=== PATIENT | female | born 1995 | race African-American/Black ===

== ENCOUNTER 2017-09-26 00:32 | Inpatient (IN) | payer MEDICAID ==
[2017-09-26] MEDS: LACTATED RINGER'S 500 ML IV ×4 (01:43→13:43)
[2017-09-26] MEDS ORDERED: IBUPROFEN 600 MG TAB PO (02:00)
[2017-09-26] MEDS ORDERED: LIDOCAINE 1% (MPF) 30 ML INJ INJ (02:00)
[2017-09-26] MEDS ORDERED: MISOPROSTOL 200 MCG TAB PR ×2 (02:00→21:30)
[2017-09-26] MEDS ORDERED: BUTORPHANOL 2 MG INJ IV (02:00)
[2017-09-26] MEDS ORDERED: HYDROCODONE/APAP (5/325) TAB PO ×3 (02:00→21:30)
[2017-09-26] MEDS ORDERED: CARBOPROST 250 MCG INJ IM ×2 (02:00→21:30)
[2017-09-26] MEDS ORDERED: OXYTOCIN 30 UNITS/LR 500 ML IV ×2 (02:00→21:30)
[2017-09-26] MEDS ORDERED: METHYLERGONOVINE 0.2 MG INJ IM ×2 (02:00→21:30)
[2017-09-26 03:07] LABS: ADD MAN DIFF? NO
[2017-09-26] MEDS: BUTORPHANOL 2 MG INJ IV (03:13)
[2017-09-26] MEDS: AMPICILLIN 2 GM/NS (PMX) 100 ML IV (03:14)
[2017-09-26] MEDS: LACTATED RINGER'S 1,000 ML IV ×3 (03:14→11:36)
[2017-09-26 03:17] LABS: BASOPHILS % 0.3 % (0.0-2.0); EOSINOPHILS % 0.5 % (0.0-7.0); HEMATOCRIT 36.9 % (37.0-47.0); HEMOGLOBIN 13.1 g/dl (12.0-16.0); LYMPHOCYTES # 1.9 10^3/ul (0.8-2.9); LYMPHOCYTES % 24.6 % (18.0-55.0); MEAN CORPUSCULAR HGB CONC 35.5 g/dl (32.0-37.0); MEAN CORPUSCULAR VOLUME 90.2 fl (72.0-104.0); MEAN PLATELET VOLUME 10.8 fl (7.4-10.4); MONOCYTE # 0.9 10^3/ul (0.3-0.9); NEUTROPHIL # 4.9 10^3/ul (1.6-7.5); NEUTROPHILS % 63.1 % (30.0-74.0); PLATELET COUNT 167 10^3/UL (140-415); RED BLOOD COUNT 4.09 10^6/ul (4.20-5.40); RED CELL DISTRIBUTION WIDTH 13.5 % (11.5-14.5)
[2017-09-26 03:17] LABS: WHITE BLOOD COUNT 7.7 10^3/ul (4.8-10.8)
[2017-09-26 03:32] LABS: INR 0.89; PROTIME 12.1 Sec (11.9-14.9); PT RATIO 0.9
[2017-09-26 03:33] LABS: PARTIAL THROMBOPLASTIN TIME 28.6 Sec (25.0-35.0)
[2017-09-26 03:35] LABS: ALANINE AMINOTRANSFERASE 20 IU/L (13-69); ALBUMIN 3.5 g/dl (3.3-4.9); ALBUMIN/GLOBULIN RATIO 1.02; ALKALINE PHOSPHATASE 193 IU/L (42-121); ANION GAP 16 (8-16); ASPARTATE AMINO TRANSFERASE 27 IU/L (15-46); BILIRUBIN,INDIRECT 0.3 mg/dl (0-1.1); BILIRUBIN,TOTAL 0.3 mg/dl (0.2-1.3); BLOOD UREA NITROGEN 4 mg/dl (7-20); CALCIUM 9.2 mg/dl (8.4-10.2); CARBON DIOXIDE 21 mmol/L (21-31); CHLORIDE 109 mmol/L (97-110); CREATININE 0.53 mg/dl (0.44-1.00); GLUCOSE 80 mg/dl (70-220); POTASSIUM 3.7 mmol/L (3.5-5.1); SODIUM 142 mmol/L (135-144); TOTAL PROTEIN 6.9 g/dl (6.1-8.1)
[2017-09-26 04:21] LABS: HEPATITIS B SURFACE ANTIGEN NEGATIVE (NEGATIVE)
[2017-09-26] MEDS: AMPICILLIN 1 GM/NS (PMX) 50 ML IV ×2 (07:08→10:00)
[2017-09-26 07:30] LABS: AMPHETAMINE/METHAMPHETAMINE Negative (NEGATIVE); BARBITURATES Negative (NEGATIVE); BENZODIAZEPINES Negative (NEGATIVE); CANNABINOIDS Negative (NEGATIVE); COCAINE Negative (NEGATIVE); OPIATES Negative (NEGATIVE)
[2017-09-26 07:35] LABS: ADD UMIC NO; UR ASCORBIC ACID NEGATIVE (NEGATIVE); UR BACTERIA FEW /HPF (NONE SEEN); UR BILIRUBIN (Dip) NEGATIVE (NEGATIVE); UR BLOOD (Dip) NEGATIVE (NEGATIVE); UR CLARITY SLIGHTLY CLOUDY (CLEAR); UR COLOR YELLOW (YELLOW); UR GLUCOSE (Dip) NEGATIVE (NEGATIVE); UR KETONES (Dip) NEGATIVE (NEGATIVE); UR LEUKOCYTE ESTERASE (Dip) NEGATIVE Leu/ul (NEGATIVE); UR NITRITE (Dip) NEGATIVE (NEGATIVE); UR RBC 0 /HPF (0-5); UR SPECIFIC GRAVITY (Dip) 1.005 (1.003-1.030); UR SQUAMOUS EPITHELIAL CELL FEW /HPF (FEW); UR TOTAL PROTEIN (Dip) NEGATIVE (NEGATIVE); UR UROBILINOGEN (Dip) NEGATIVE (NEGATIVE); UR WBC 1 /HPF (0-5)
[2017-09-26 09:11] LABS: HIV 1&2 ANTIBODY NEGATIVE (NEGATIVE)
[2017-09-26] MEDS ORDERED: FENTAnyl 2MCG/ML-ROPIV 0.2% 100 ML (10:25)
[2017-09-26] MEDS: FENTAnyl 2MCG/ML-ROPIV 0.2% 100 ML BAG EPI (10:56)
[2017-09-26] MEDS ORDERED: NALOXONE (0.4 MG/ML) INJ IV (11:00)
[2017-09-26] MEDS: MINERAL OIL LIGHT 10 ML VIAL TOP (16:30)
[2017-09-26] MEDS: OXYTOCIN 30 UNITS/LR 500 ML IV ×3 (17:00→20:55)
[2017-09-26] MEDS ORDERED: DIBUCAINE 1% 30 GM OINT PR (21:30)
[2017-09-26] MEDS ORDERED: ZOLPIDEM 5 MG TAB PO (21:30)
[2017-09-26] MEDS: IBUPROFEN 600 MG TAB PO (21:32)
[2017-09-26 21:39] LABS: RAPID PLASMA REAGIN NONREACTIVE (NR)
[2017-09-26] MEDS: BENZOCAINE 20% 56 ML SPRAY TOP (22:35)
[2017-09-26] MEDS: LANOLIN 7 GM TUBE TOP (22:35)
[2017-09-26] MEDS: WITCH HAZEL/GLYCERIN PAD PR (22:35)
[2017-09-27] MEDS: CEPHALEXIN 500 MG CAP PO ×5 (00:26→23:39)
[2017-09-27] MEDS: LACTATED RINGER'S 1,000 ML IV* (00:53)
[2017-09-27] MEDS: IBUPROFEN 600 MG TAB PO ×5 (02:00→23:39)
[2017-09-27] MEDS: MAGNESIUM HYDROXIDE 30ML CUP PO ×2 (09:47→21:23)
[2017-09-27] MEDS: SENNA/DOCUSATE NA (8.6MG/50MG) TAB PO ×2 (09:47→21:23)
[2017-09-27 10:27] LABS: ADD MAN DIFF? NO
[2017-09-27 10:35] LABS: BASOPHILS % 0.2 % (0.0-2.0); EOSINOPHILS # 0.1 10^3/ul (0.0-0.5); EOSINOPHILS % 0.5 % (0.0-7.0); HEMATOCRIT 29.2 % (37.0-47.0); HEMOGLOBIN 10.1 g/dl (12.0-16.0); LYMPHOCYTES # 1.9 10^3/ul (0.8-2.9); LYMPHOCYTES % 14.7 % (18.0-55.0); MEAN CORPUSCULAR HEMOGLOBIN 32.1 pg (29.0-33.0); MEAN CORPUSCULAR HGB CONC 34.6 g/dl (32.0-37.0); MEAN CORPUSCULAR VOLUME 92.7 fl (72.0-104.0); MEAN PLATELET VOLUME 10.7 fl (7.4-10.4); MONOCYTE # 0.6 10^3/ul (0.3-0.9); MONOCYTES % 4.7 % (0.0-13.0); NEUTROPHIL # 10.4 10^3/ul (1.6-7.5); NEUTROPHILS % 79.4 % (30.0-74.0); PLATELET COUNT 154 10^3/UL (140-415); RED BLOOD COUNT 3.15 10^6/ul (4.20-5.40); RED CELL DISTRIBUTION WIDTH 13.9 % (11.5-14.5)
[2017-09-28] MEDS: CEPHALEXIN 500 MG CAP PO ×2 (05:41→12:14)
[2017-09-28] MEDS: IBUPROFEN 600 MG TAB PO ×2 (05:41→12:14)
[2017-09-28] MEDS: DIPHTH/TET/ACEL PERTUSS (ADULT) 0.5 ML VIAL IM* (09:00)
[2017-09-28] MEDS: VARICELLA VACCINE LIVE/PF 1,350 UNIT/0.5 ML ML SC* (09:00)
[2017-09-28] MEDS: MEASLES,MUMPS,RUBELLA VACCINE INJ SC* (09:00)
[2017-09-28 09:41] LABS: ADD MAN DIFF? NO
[2017-09-28 09:46] LABS: BASOPHILS % 0.4 % (0.0-2.0); EOSINOPHILS # 0.1 10^3/ul (0.0-0.5); EOSINOPHILS % 1.7 % (0.0-7.0); HEMATOCRIT 27.7 % (37.0-47.0); HEMOGLOBIN 9.4 g/dl (12.0-16.0); LYMPHOCYTES # 1.7 10^3/ul (0.8-2.9); LYMPHOCYTES % 21.5 % (18.0-55.0); MEAN CORPUSCULAR HEMOGLOBIN 31.5 pg (29.0-33.0); MEAN CORPUSCULAR HGB CONC 33.9 g/dl (32.0-37.0); MEAN PLATELET VOLUME 10.3 fl (7.4-10.4); MONOCYTE # 0.5 10^3/ul (0.3-0.9); MONOCYTES % 6.7 % (0.0-13.0); NEUTROPHIL # 5.4 10^3/ul (1.6-7.5); NEUTROPHILS % 69.2 % (30.0-74.0); PLATELET COUNT 154 10^3/UL (140-415); RED BLOOD COUNT 2.98 10^6/ul (4.20-5.40); RED CELL DISTRIBUTION WIDTH 13.9 % (11.5-14.5)
[2017-09-28 09:46] LABS: WHITE BLOOD COUNT 7.8 10^3/ul (4.8-10.8)
[2017-09-28] MEDS: SENNA/DOCUSATE NA (8.6MG/50MG) TAB PO (10:05)
[2017-09-28] MEDS: MAGNESIUM HYDROXIDE 30ML CUP PO (10:05)
[2017-09-28 15:47] LABS: RUBELLA ANTIBODY - IGG <0.90 index
[2017-10-01 12:21] LABS: RUBELLA ANTIBODY - IGM <20.00 AU/mL
== END 2017-09-28 17:08 | disposition home or self-care (01) | DRG 775 ==
LOC: OBT 00:32 → L-D 00:32 → OBT 01:40 → L-D 01:40 → PP1 20:50
PROC: 10E0XZZ Delivery of Products of Conception, External Approach (ICD-10-PCS; principal; 2017-09-26)
PROC: 0W8NXZZ Division of Female Perineum, External Approach (ICD-10-PCS; 2017-09-26)
PROC: 3E033VJ Introduction of Other Hormone into Peripheral Vein, Percutaneous Approach (ICD-10-PCS; 2017-09-26)
DX: O70.9 Perineal laceration during delivery, unspecified (principal); Z37.0 Single live birth; Z3A.39 39 weeks gestation of pregnancy
CPT/HCPCS: 36415; 62319; 80053; 80307; 81001; 81003; 85025; 85610; 85730; 86592; 86703; 86762; 86850; 86900; 86901; 87086; 87340

== ENCOUNTER 2018-01-25 12:26 | Emergency (ER) | payer OTHER, MEDICAID ==
[2018-01-25] MEDS: IBUPROFEN 600 MG TAB PO (14:22)
== END 2018-01-25 14:51 | disposition home or self-care (01) ==
LOC: FTE 12:26
DX: S92.414A Nondisplaced fracture of proximal phalanx of right great toe, initial encounter for closed fracture (principal); W18.39XA Other fall on same level, initial encounter; Y92.9 Unspecified place or not applicable
CPT/HCPCS: 73630; 99283-25